=== PATIENT | female | born 1980 | race American Indian/Alaskan Native ===

== ENCOUNTER → 2024-11-21 | Outpatient (CLI) | payer BC, SELFPAY ==
[2024-11-21 12:21] LABS: Collection Type, Urine Clean Catch
[2024-11-21 13:06] LABS: Bacteria,Urine Rare; Bilirubin,Urine Negative (Negative); Blood,Urine 1+ (Negative); Color,Urine Yellow (Lt Yel-Yel); Glucose, Urine Negative (Negative); Ketones,Urine Negative (Negative); Leukocyte Esterase,Urine Positive (Negative); Nitrite,Urine Negative (Negative); Protein,Urine Trace (Neg - Trace); RBC,Urine 16 /hpf (0-3); Specific Gravity,Urine 1.013 (1.001-1.035); Squamous Epithelial Cell,Urine 9 /hpf (0-5); Urobilinogen,Urine Negative mg/dL (0.0-1.0); WBC,Urine 257 /hpf (0-5)
[2024-11-21 13:11] LABS: Clarity,Urine Cloudy (Clear/Hazy)
== END | disposition home or self-care (01) ==
LOC: COPL 12:11 → SLDO 12:12
PROVIDERS: PCP Family Medicine; Referring Provider Family Medicine; Visit Provider Family Medicine
DX: N30.00 Acute cystitis without hematuria (principal)
CPT/HCPCS: 81001; 87077; 87086; 87186

== ENCOUNTER 2024-12-21 19:35 | Observation (INO) | payer BC, SELFPAY ==
[2024-12-21 19:36] VITALS: BMI 39.9
[2024-12-21 20:19] VITALS: BP 163/101; PULSE 94; RESP 20; TEMP 36.7; O2SAT 97
--- NOTE | 2024-12-21 20:28 | XR_ITS ---
Examination: Transvaginal ultrasound of the pelvis, complete Technique: Transvaginal sonographic images pelvis performed using esqueda scale imaging Exam date and time: December 21, 2024 2115 hours INDICATIONS: Pelvic right lower abdominal pain umbilical pain today FINDINGS: Absent uterus Right ovary 5.7 cm arterial flow, 4.3 x 3.3 x 3.7 cm cyst Left ovary 2.6 cm, arterial flow, 8mm follicular cyst IMPRESSION: Right ovarian simple cyst 4.3 x 3.3 x 3.7 cm.
--- NOTE | 2024-12-21 20:28 | XR_ITS ---
Examination: CT abdomen with intravenous contrast CT pelvis with intravenous contrast 2-D coronal reconstructions 2-D sagittal reconstructions Date and time of exam:December 21, 2024, 2241 hours INDICATIONS: Onset right-sided abdominal pain today. CTDI: vol (mGy) 10.9 DLP: (mGycm) 608 Technique: Multiple axial sections of the abdomen and pelvis have been obtained. 64 slice high-resolution scanner used. 3 mm axial sections have been obtained, post intravenous injection of 60 cc [id number]-370 2-D sagittal, coronal reconstructions obtained. Low dose protocols were performed. One or more of the following dose reduction techniques were used; automated exposure control, adjustment of the mA and/or KV according to patient size, use of iterative reconstruction technique. Findings: No focal liver or splenic lesions Absent gallbladder No pancreatic or adrenal mass 4 mm left 3 mm right renal calculi, no hydronephrosis or ureteral calculi 6 mm fat-containing umbilical hernia Normal appendix No bowel obstruction 4.6 cm right pelvic cyst Absent uterus No bladder mass Moderate disc narrowing L5-S1 IMPRESSION: Normal appendix Bilateral nonobstructing renal calculi 4.6 cm right pelvic cyst
--- NOTE | 2024-12-21 20:33 | PD.EDRME ---
Rapid Medical Screening Exam [facility] Arrival date/time: 12/21/24 19:35 44F with history of partial hysterectomy, cholecystectomy, and HTN presents to ED with several days of RLQ pain, N/V, and some constipation/diarrhea. Chief Complaint: Abdominal Pain Vital signs: Vital Signs Temperature 98.0 F 12/21/24 20:19 Pulse Rate 94 12/21/24 20:19 Respiratory Rate 20 12/21/24 20:19 Blood Pressure 163/101 H 12/21/24 20:19 Pulse Oximetry (%) 97 12/21/24 20:19 Oxygen Delivery Method Room Air 12/21/24 20:19
[2024-12-21 20:57] LABS: Collection Type, Urine Clean Catch; RBC,Urine 0 /hpf (0-3); WBC,Urine 0 /hpf (0-5)
[2024-12-21] MEDS: ONDANSETRON INJ 2 MG/ML INJ 2 ML 4 MG IV (21:08)
[2024-12-21] MEDS: MORPHINE SULF INJ 10 MG/ML VIAL 5 MG IVP (21:08)
[2024-12-21 21:21] LABS: Basophils # (Auto) 0.0 Thou/mm3 (0.0-0.2); Basophils % (Auto) 0 % (0-2.5); Eosinophils # (Auto) 0.2 Thou/mm3 (0.0-0.5); Eosinophils % (Auto) 2 % (0-10); Hematocrit 40.8 % (36.0-46.0); Hemoglobin 14.0 g/dL (12.0-16.0); Immature Granulocytes Auto 0.03 Thou/mm3 (0.00-0.00); Lymphocytes # (Auto) 4.0 Thou/mm3 (1.0-4.8); Lymphocytes % (Auto) 42 % (10-50); Mean Corpuscular HGB Conc 34.3 g/dl (31.0-37.0); Mean Corpuscular Hemoglobin 30.4 pg (25.0-35.0); Mean Corpuscular Volume 89 fL (80-100); Monocytes # (Auto) 0.8 Thou/mm3 (0.0-0.8); Monocytes % (Auto) 8 % (0-12); Neutrophils # (Auto) 4.6 Thou/mm3 (1.8-7.7); Neutrophils % (Auto) 48 % (37-80); Nucleated Red Blood Cell # 0.00 Thou/mm3 (0.00-0.00); Nucleated Red Blood Cell % 0 /100 WBC (0); Platelet Count 212 Thou/mm3 (140-440); RDW Standard Deviation 41.7 fL (36.4-46.3); Red Blood Count 4.60 Miln/mm3 (4.00-5.20); White Blood Count 9.7 Thou/mm3 (3.6-11.0)
[2024-12-21 22:29] LABS: Alanine Aminotransferase 60 U/L (10-49); Albumin, Serum 4.5 gm/dL (3.5-5.0); Albumin/Globulin Ratio 1.5 (1.2-2.2); Alkaline Phosphatase 102 U/L (46-116); Aspartate Amino Transferase 42 U/L (0-34); BUN/Creatinine Ratio 10 Ratio (12-20); Bilirubin,Total 0.4 mg/dL (0.3-1.2); Blood Urea Nitrogen 6 mg/dL (9-23); Calcium 10.2 mg/dL (8.3-10.6); Calcium (Corrected) 10.2 mg/dL (8.5-10.1); Carbon Dioxide 28.5 mMol/L (20.0-31.0); Creatinine (Component) 0.6 mg/dL (0.6-1.3); Estimated Creatinine Clearance 115.6 mL/min (>60); Globulin 3.1 gm/dL (2.3-3.5); Glucose 89 mg/dL (74-106); Lipase 43 U/L (12-53); Total Protein 7.6 gm/dL (5.7-8.2); eGFR > 60 See Note
[2024-12-21 22:31] LABS: Anion Gap 8 (7-16); Chloride 102 mMol/L (98-107); Osmolality,Calculated 272 (275-295); Potassium 3.5 mMol/L (3.4-5.1); Sodium 138 mMol/L (136-145)
[2024-12-21 22:44] LABS: Bilirubin,Urine Negative (Negative); Blood,Urine Negative (Negative); Clarity,Urine Clear (Clear/Hazy); Color,Urine Colorless (Lt Yel-Yel); Culture Indicated,Urine Not Indicated; Glucose, Urine Negative (Negative); Ketones,Urine Negative (Negative); Leukocyte Esterase,Urine Negative (Negative); Nitrite,Urine Negative (Negative); PH,Urine 6.5 (5.0-7.0); Protein,Urine Negative (Neg - Trace); Specific Gravity,Urine 1.007 (1.001-1.035); Squamous Epithelial Cell,Urine 1 /hpf (0-5); Urobilinogen,Urine Negative mg/dL (0.0-1.0)
[2024-12-21 22:51] VITALS: BP 137/87; PULSE 84; RESP 18; TEMP 36.9; O2SAT 95
[2024-12-21] MEDS: KETOROLAC INJ 30 MG/ML VIAL IVP (23:38)
[2024-12-22] VITALS (12 sets, daily range): BP systolic 128–150; BP diastolic 72–96; PULSE 80–99; RESP 14–99; TEMP 35.8–37.2; O2SAT 95–100; BMI 39.9
--- NOTE | 2024-12-22 00:29 | PD.GYNHP ---
Documentation for date of: 12/22/24 AUTOMOTIVE SERVICES MANAGER - HPI History of Present Illness History of present illness: Ms. FAGAN is a 44 year old female with a prior hysterectomy for benign disease who presents to the ER complaining of severe right lower quadrant pain, Nausea, Vomiting and Diarrhea. TVS and CT Scan show a right ovarian cyst 4.3 x 3.3 x 3.7 cm with a normal appendix and no bowel obstruction. She received Morphine 5mg and then Toradol 30mg 2 hours later and still rates her pain 10 out of 10. Review of Systems Review of Systems Narrative Review of Systems: Denies any chest pain palpitations cough fever shortness of breath or lower extremity pain Past Medical History Past Medical History NEUROLOGIC: Positive Migraine CARDIAC: Positive Hypertension GASTROINTESTINAL: Positive Gastrointestinal Disorders (Chronic elevated liver enzymes), Gall Bladder Disease, Gastroesophageal Reflux Disease and Obesity GENITOURINARY: Positive Kidney Stones REPRODUCTIVE: Positive Previous Pregnancies Family History OTHER FAMILY HX: Colon cancer: Maternal aunt uncle and nephew Surgical History SURGICAL: Positive Hysterectomy, Section (x 4) and Hx Cholecystectomy OTHER SURGICAL HX: Endometrial ablation, EGD. Social History SOCIAL: Denies any alcohol drug use or smoking. Meds Home Medications and Allergies Home Medications ?Medication ?Instructions ?Recorded ?Confirmed ?Type hydrochlorothiazide 25 mg tablet 25 mg PO QDAY 02/09/23 02/09/23 History losartan 50 mg tablet 50 mg PO QDAY 02/09/23 02/09/23 History rimegepant 75 mg disintegrating 75 mg PO QDAY 02/09/23 02/09/23 History tablet (Nurtec ODT) Allergies Allergy/AdvReac Type Severity Reaction Status Date / Time Sulfa (Sulfonamide Allergy Rash Verified 12/21/24 19:36 Antibiotics) Exam - AUTOMOTIVE SERVICES MANAGER Vital Signs Temp Pulse Resp BP Pulse Ox O2 Del Method 98.4 F 84 18 137/87 H 95 Room Air 12/21/24 22:51 12/21/24 22:51 12/21/24 22:51 12/21/24 22:51 12/21/24 22:51 12/21/24 22:51 Routine HEENT Exam Comments: Oropharynx and sclera clear Routine Respiratory Exam Comments: Clear to auscultation bilaterally Routine Cardiovascular Exam Comments: Regular rate and rhythm Routine Abdominal Exam Comments: Tender right lower quadrant, soft, guarding, no rebound or rigidity, old Pfannenstiel scar noted, old trocar scars noted Routine Extremities Exam Comments: Nontender or edema Routine Skin Exam Comments: No gross rashes or lesions AUTOMOTIVE SERVICES MANAGER - Results Labs 12/21/24 20:50 12/21/24 20:50 Labs: Short CBC 12/21/24 Range/Units 20:50 WBC 9.7 (3.6-11.0) Thou/mm3 Hgb 14.0 (12.0-16.0) g/dL Hct 40.8 (36.0-46.0) % Plt Count 212 (140-440) Thou/mm3 BMP 12/21/24 20:50 Sodium 138 Potassium 3.5 Chloride 102 Carbon Dioxide 28.5 BUN 6 L Creatinine 0.6 Glucose 89 Calcium 10.2 Liver Function 12/21/24 Range/Units 20:50 Total Bilirubin 0.4 (0.3-1.2) mg/dL AST 42 H (0-34) U/L ALT 60 H (10-49) U/L Alkaline Phosphatase 102 (46-116) U/L Albumin 4.5 (3.5-5.0) gm/dL Urine 12/21/24 Range/Units 20:40 Urine Color Colorless A (Lt Yel-Yel) Urine Clarity Clear (Clear/Hazy) Urine pH 6.5 (5.0-7.0) Ur Specific [place] 1.007 (1.001-1.035) Urine Protein Negative (Neg - Trace) Urine Glucose (UA) Negative (Negative) Impressions Impression: Right ovarian torsion Diagnostic laparoscopy, possible laparotomy, possible right oophorectomy, possible right ovarian cystectomy Informed consent was obtained. The patient was made aware of the risks, complications, alternatives and benefits of the proposed procedure and she agreed. She was made aware that due to her BMI and history of multiple abdominal surgeries that there is an increased risk of bowel perforation and bladder injury with her surgery. She was made aware that these complications can increase her duration of hospitalization and recovery time and can sometimes result in chronic conditions and chronic pain. She was made aware of the risk of bleeding leading to blood transfusion, blood clots in the deep veins of the legs and lungs, anesthesia complications and rarely . The patient verbalized understanding and agreed to proceed with the procedure as planned. Quality Measures Quality Measures VTE prophylaxis
--- NOTE | 2024-12-22 00:45 | PD.EDABDPN ---
ED Abdominal Pain RME/HPI General Chief Complaint: Abdominal Pain Stated complaint: RIGHT SIDE ABD PAIN Arrival date/time: 12/21/24 19:35 Source: patient RME / HPI RME / HPI narrative: 12/21/24 19:35 44F with history of partial hysterectomy, cholecystectomy, and HTN presents to ED with several days of RLQ pain, N/V, and some constipation/diarrhea. ------ Dr. Obrien's Main ED Evaluation: This is a 44-year-old female with above surgical history, patient of Dr Meza who presents with right mid to right lower abdominal pain that is twisting in sensation that started earlier today on and off with increasing intensity that is currently present at approximately 3 out of 10. The patient states that since being in the emergency department the pain has gone up to at least a 7 out of 10. She has not had pain like this in the past. There is nausea without any vomiting. Otherwise not exertional. The patient does not report that she has a history of STD. There is some radiation to her back on the right. No dysuria or vaginal bleeding at this time. Patient has a history of high cholesterol, partial hysterectomy and cholecystectomy in the past. HAIR SPINNING MACHINE OPERATOR is Dr Meza. Related Data Home Medications ?Medication ?Instructions ?Recorded ?Confirmed hydrochlorothiazide 25 mg tablet 25 mg PO QDAY 02/09/23 02/09/23 losartan 50 mg tablet 50 mg PO QDAY 02/09/23 02/09/23 rimegepant 75 mg disintegrating 75 mg PO QDAY 02/09/23 02/09/23 tablet (Nurtec ODT) Previous Rx's ?Medication ?Instructions ?Recorded metoclopramide HCl 5 mg tablet 5 mg PO BID #60 tabs 02/09/23 (Reglan) sucralfate 1 gram tablet (Carafate) 1 g PO BID #60 tabs 02/09/23 hydrocodone 5 mg-acetaminophen 325 1 tab PO Q6H PRN pain #20 tabs 12/22/ mg tablet Allergies Allergy/AdvReac Type Severity Reaction Status Date / Time Sulfa (Sulfonamide Allergy Rash Verified 12/21/24 19:36 Antibiotics) Review of Systems Review of Systems Systems Reviewed: All systems reviewed, normal except as documented Past Medical History Past Medical History NEUROLOGIC: Positive Migraine; Negative Seizures CARDIAC: Positive Hypertension; Negative Cardiac Disorders or Congestive Heart Failure RESPIRATORY: Negative Chronic Obstructive Pulmonary Disease (COPD) or Asthma GASTROINTESTINAL: Positive Gastrointestinal Disorders (Chronic elevated liver enzymes), Gall Bladder Disease, Gastroesophageal Reflux Disease and Obesity GENITOURINARY: Positive Kidney Stones; Negative Renal Disease REPRODUCTIVE: Positive Previous Pregnancies MUSCULOSKELETAL: Negative Musculoskeletal Disorders ENDOCRINE: Negative Endocrine Disorders, Diabetes Mellitus Type 1 or Diabetes Mellitus Type 2 HEMATOLOGIC: Negative Sickle Cell Disease OTHER HISTORY: Negative Blood Transfusions, Anesthesia Reactions or Cancer Family History OTHER FAMILY HX: Colon cancer: Maternal aunt uncle and nephew Surgical History SURGICAL: Positive Hysterectomy, Section (x 4) and Hx Cholecystectomy OTHER SURGICAL HX: Endometrial ablation, EGD. Social History SOCIAL: Denies any alcohol drug use or smoking. SMOKING STATUS: Never smoker Course Quality Measures none Orders Category Date Time Status SDC [Place in Surgical Day Care] Routine Admission 12/22/24 00:24 Active condition [Patient Condition] Routine Admission 12/22/24 Ordered Ambulate with Assistance Routine Care 12/22/24 02:48 Ordered Apply SARA Hose NOW Care 12/22/24 03:46 Active COVID-19 Screening Questionnaire NOW Care 12/22/24 00:[address] Screening NOW Care 12/21/24 20:31 Completed Continuous Pulse Oximetry .Ongoing Care 12/22/24 03:46 Active DC Fluid. Convert to IV Lock. Now Care 12/22/24 03:46 Active Decision to Admit X1 Care 12/22/24 00:22 Completed Incentive Spirometry Treatment .q2h w/a Care 12/22/24 03:46 Active Insert IV NOW Care 12/21/24 20:28 Completed Miscellaneous Nursing Order X1 Care 12/22/24 02:48 Active NPO NOW Care 12/22/24 00:26 Completed Notify provider NEEDED Care 12/22/24 03:46 Active Sequential Compression Device NOW Care 12/22/24 03:46 Active Turn, Cough, and Deep Breathe now Care 12/22/24 03:46 Active Diet Low Sodium (2gm) Diet 12/22/[address] abdomen pelvis w con Stat Exams 12/21/24 20:28 Completed US transvaginal Stat Exams 12/21/24 21:29 Completed CBC Stat Lab 12/21/24 20:50 Completed CMP [Comprehensive Metabolic Panel] Stat Lab 12/21/24 20:50 Completed Lipase Stat Lab 12/21/24 20:50 Completed Urinalysis, C/S if Indicated Stat Lab 12/21/24 20:40 Completed Acetaminophen Ivpb [Ofirmev Inj] 100 ml Med 12/22/24 01:22 Discontinued IV .STK-MED Bupivacaine Mpf/Epi 0.5% [Sensorcaine-Mpf Inj 0.5% w/ Med 12/22/24 01:07 Discontinued Epi] 30 ml .ROUTE .STK-MED ONE Dexamethasone Inj [Decadron Inj] Med 12/22/24 01:14 Discontinued 10 mg .ROUTE .STK-MED ONE HYDROcodone*/APAP 5/325 [[place] 5/325] Med 12/22/24 03:46 Active 1 tab PO Q4HR PRN HYDROcodone*/APAP 5/325 [[place] 5/325] Med 12/22/24 03:46 Active 2 tab PO Q6HR PRN HYDROmorphone INJ [Dilaudid Inj] Med 12/22/24 02:24 Discontinued 0.5 mg IVP Q10MIN PRN Ketorolac Inj [Toradol Inj] Med 12/22/24 03:46 Active 30 mg IVP Q6HR PRN Ketorolac Inj [Toradol Inj] Med 12/21/24 23:29 Discontinued 30 mg IVP X1 ONE Lidocaine Inj Pf 2% 2 ml [Xylocaine Inj Pf Inj 2% 2 ml] Med 12/22/24 01:22 Discontinued 2 ml .ROUTE .STK-MED ONE Meperidine Inj [Demerol Inj] Med 12/22/24 02:24 Discontinued 12.5 mg IVP Q5M PRN Metoclopramide Inj [Reglan Inj] Med 12/22/24 01:14 Discontinued 10 mg .ROUTE .STK-MED ONE Midazolam Inj [Versed Inj] Med 12/22/24 02:24 Discontinued 1 mg IVP Q5MIN PRN Morphine Inj Med 12/21/24 20:28 Discontinued 5 mg IVP X1 ONE Ondansetron Inj [Zofran Inj] Med 12/21/24 20:28 Discontinued 4 mg IV X1 ONE Ondansetron Inj [Zofran Inj] Med 12/22/24 02:24 Active 4 mg IVP X1 PRN Promethazine Inj [Phenergan Inj] 12.5 mg Med 12/22/24 02:24 Discontinued Sodium Chloride 0.9% [Ns] 50 ml IV X1 Propofol Inj [Diprivan Inj] Med 12/22/24 01:14 Discontinued 200 mg IV .STK-MED ONE Ringers Lactated 1000 ml [Lactated Ringers] 1,000 ml Med 12/22/24 18:45 Discontinued IV 100 mls/hr Ringers Lactated 1000 ml [Lactated Ringers] 1,000 ml Med 12/22/24 00:30 Active IV 30 mls/hr Rocuronium Inj [Zemuron Inj] Med 12/22/24 01:14 Discontinued 100 mg .ROUTE .STK-MED ONE Simethicone [Mylicon Chew] Med 12/22/24 03:46 Active 80 mg PO Q4HR PRN Sugammadex Inj [Bridion Inj] Med 12/22/24 02:32 Discontinued 200 mg .ROUTE .STK-MED ONE Tranexamic Acid Inj Med 12/22/24 02:30 Discontinued 1,000 mg .ROUTE .STK-MED ONE fentaNYL INJ [Sublimaze Inj] Med 12/22/24 01:14 Discontinued 100 mcg .ROUTE .STK-MED ONE fentaNYL INJ [Sublimaze Inj] Med 12/22/24 02:04 Discontinued 100 mcg .ROUTE .STK-MED ONE fentaNYL INJ [Sublimaze Inj] Med 12/22/24 02:24 Discontinued 50 mcg IVP Q5MIN PRN hydrALAZINE INJ [Apresoline Inj] Med 12/22/24 02:24 Discontinued 5 mg IV Q20MIN PRN Code Status Routine Oth 12/22/24 00:25 Ordered Oxygen Delivery .Ongoing RT 12/22/24 03:46 Active Transfer Order Routine Transfer 12/22/24 02:44 Completed Vital Signs Vital signs: Vital Signs Temperature 98.0 F 12/21/24 20:19 Pulse Rate 94 12/21/24 20:19 Respiratory Rate 20 12/21/24 20:19 Blood Pressure 163/101 H 12/21/24 20:19 Pulse Oximetry (%) 97 12/21/24 20:19 Oxygen Delivery Method Room Air 12/21/24 20:19 Abdominal Pain MDM MDM Narrative MDM Narrative:: 44-year-old female initially seen by the PA who feels that this patient may have intermittent torsion with an ovarian cyst and or abnormality in the pelvis measuring up to 4.3 cm. The patient is still complaining of significant pain. While in the emergency department she was treated with morphine and Toradol. Initial blood pressure 163 systolic improved to 137. The patient is afebrile and otherwise white count shows no leukocytosis anemia, or thrombocytopenia. BUN and creatinine are normal. She has baseline elevated AST and ALT however her other LFTs are normal and her urine does not show infection. I discussed this case with the PA and at this time he has spoken with Dr Meza who is agreed to come and evaluate the patient in the emergency department. I have reviewed the CT interpretation and the ultrasound. CT scan shows normal appendix. Ultrasound interpretation is reviewed. The patient is placed into a room. She has moderate tenderness palpation at the right side of her abdomen, patient patient is unable to lay flat at this time since she is having significant pain. Dr Meza's at the bedside and he will admit and or consider operative management at this time. Patient data External records reviewed:: [facility] previous records (Per chart review, patient has no previous ED visits or admissions to this facility.) Clinical information provided by:: patient Social determinants that could affect healthcare access:: none Patient has the following chronic illnesses:: HTN How is presenting disease/condition affected by chronic disease/condition?: uneffected by Evaluation data The following diagnostics were reviewed and interpreted by me:: lab results Lab and/or radiology exams considered but not ordered:: none Interpretation Summary: na Medications / Prescriptions Medications or Prescriptions considered but not ordered:: none Medication administrations:: Medication Administration History Hydrocodone Bitart/Acetaminophen (Hydrocodone/Apap 5/325 Tablet) 1 tab PO Q4HR PRN PRN Reason: Patient rated pain 7 to 8 Stop: 12/27/24 03:45 Hydrocodone Bitart/Acetaminophen (Hydrocodone/Apap 5/325 Tablet) 2 tab PO Q6HR PRN PRN Reason: Patient rated pain 9 to 10 Stop: 12/27/24 03:45 Lactated Ringer's (Lactated Ringers) 1,000 mls @ 30 mls/hr IV .Q24H NAOMI Stop: 01/21/25 00:29 Last Admin: 12/22/24 00:48 Dose: 30 mls/hr Documented By: Ketorolac Tromethamine (Ketorolac Inj 30 Mg/Ml Vial) 30 mg IVP Q6HR PRN PRN Reason: BREAKTHROUGH PAIN (SEVERE) Stop: 12/24/24 03:45 Ondansetron HCl (Ondansetron Inj 2 Mg/Ml Inj 2 Ml) 4 mg IVP X1 PRN PRN Reason: NAUSEA OR VOMITING Simethicone (Simethicone 80 Mg Chew) 80 mg PO Q4HR PRN PRN Reason: GAS Stop: 01/21/25 03:45 Last Admin: 12/22/24 04:53 Dose: 80 mg Documented By: BF Discontinued Medications Bupivacaine HCl/Epinephrine Bitart (Bupivacaine Mpf/Epi 0.5% 30 Ml Vial 1:200,000) Confirm Administered Dose 30 ml .ROUTE .STK-MED ONE Stop: 12/22/24 01:08 Dexamethasone Sodium Phosphate (Dexamethasone Sod Phos Inj 10 Mg/Ml Vial) Confirm Administered Dose 10 mg .ROUTE .STK-MED ONE Stop: 12/22/24 01:15 Fentanyl Citrate (Fentanyl Cit Inj 50 Mcg/Ml Amp 2ml) Confirm Administered Dose 100 mcg .ROUTE .STK-MED ONE Stop: 12/22/24 01:15 Fentanyl Citrate (Fentanyl Cit Inj 50 Mcg/Ml Amp 2ml) Confirm Administered Dose 100 mcg .ROUTE .STK-MED ONE Stop: 12/22/24 02:05 Fentanyl Citrate (Fentanyl Cit Inj 50 Mcg/Ml Amp 2ml) 50 mcg IVP Q5MIN PRN; Protocol PRN Reason: PAIN SCALE 4-10(Mod-Sev Hydralazine HCl (Hydralazine Inj 20 Mg/Ml Vial) 5 mg IV Q20MIN PRN PRN Reason: SEE COMMENTS Hydromorphone HCl (Hydromorphone Inj 2 Mg/Ml Vial) 0.5 mg IVP Q10MIN PRN; Protocol PRN Reason: PAIN SCALE 4-10(Mod-Sev Acetaminophen (Ofirmev Inj) Confirm Administered Dose 100 mls @ ud IV .STK-MED ONE Stop: 12/22/24 01:23 Promethazine HCl 12.5 mg/ (Sodium Chloride) 50.5 mls @ 2.5 mls/min IV X1 PRN PRN Reason: NAUSEA OR VOMITING Lactated Ringer's (Lactated Ringers) 1,000 mls @ 100 mls/hr IV .Q10H [facility] Stop: 01/21/25 18:44 Ketorolac Tromethamine (Ketorolac Inj 30 Mg/Ml Vial) 30 mg IVP X1 ONE Stop: 12/21/24 23:30 Last Admin: 12/21/24 23:38 Dose: 30 mg Documented By: OZIEL Lidocaine HCl (Lidocaine Inj Pf 2% 2 Ml Vial) Confirm Administered Dose 2 ml .ROUTE .STK-MED ONE Stop: 12/22/24 01:23 Meperidine HCl (Meperidine Inj 50 Mg/Ml Vial) 12.5 mg IVP Q5M PRN PRN Reason: SHIVERING Stop: 12/27/24 02:23 Metoclopramide HCl (Metoclopramide Inj 5 Mg/Ml Vial 2 Ml) Confirm Administered Dose 10 mg .ROUTE .STK-MED ONE Stop: 12/22/24 01:15 Midazolam HCl (Midazolam Inj 1 Mg/Ml Vial 2 Ml) 1 mg IVP Q5MIN PRN PRN Reason: ANXIETY Stop: 12/23/24 02:23 Morphine Sulfate (Morphine Sulf Inj 10 Mg/Ml Vial) 5 mg IVP X1 ONE Stop: 12/21/24 20:29 Last Admin: 12/21/24 21:08 Dose: 5 mg Documented By: OZIEL Ondansetron HCl (Ondansetron Inj 2 Mg/Ml Inj 2 Ml) 4 mg IV X1 ONE; Protocol Stop: 12/21/24 20:29 Last Admin: 12/21/24 21:08 Dose: 4 mg Documented By: OZIEL Propofol (Propofol Inj 10 Mg/Ml Vial 20 Ml) Confirm Administered Dose 200 mg IV .STK-MED ONE Stop: 12/22/24 01:15 Rocuronium [place] (Rocuronium Inj 10 Mg/Ml Vial 10 Ml) Confirm Administered Dose 100 mg .ROUTE .STK-MED ONE Stop: 12/22/24 01:15 Sugammadex Sodium (Sugammadex Inj 100 Mg/Ml 2ml Vial) Confirm Administered Dose 200 mg .ROUTE .STK-MED ONE Stop: 12/22/24 02:33 Tranexamic Acid (Tranexamic Acid Inj 1,000 Mg/10 Ml Vial) Confirm Administered Dose 1,000 mg .ROUTE .STK-MED ONE Stop: 12/22/24 02:31 see above Consultations Consultation(s) initiated? (list below): Yes Diagnosis Differential diagnosis abdominal pain: acute appendicitis and other (intermittent torsion, ruptured cyst) Most likely diagnosis given after review of the tests above:: see clinical impression below Admission Indicated Admission indicated?: indicated Admission Request Was there a request for admission?: Yes Admission Attestation Admission request attestation: Discussed case with [] from Hospitalist service regarding admission. Discussed patients ED course, exam findings, labs, and radiology results. The Hospitalist [agrees,declines] to accept the patient for admission. Disposition Plan Disposition Plan: Admit Discharge Plan Plan Patient Disposition: Admit Acute Care w/in Hospital Discharge Disposition comment: HOSPITAL Patient condition on transfer: Stable Problem List Clinical Impression: Ovarian mass, Inadequate pain control Patient/Caregiver Discharge Instructions Discharge Activity: activity as tolerated Other Activity Instructions:: Follow up office 1 week.
[2024-12-22] MEDS: RINGERS LACTATED 1000 ML 1,000 ML 30 ML IV ×2 (00:48→08:42)
--- NOTE | 2024-12-22 02:49 | ESOP_ITS ---
Operative Note - FLAT BED KNITTER Procedure Date of procedure: 12/22/24 Procedure Performed: Diagnostic laparoscopy, lysis of adhesions, right oophorectomy Indication: Severe right lower quadrant pain Right ovarian cyst Suspect ovarian torsion Pre-Op diagnosis: Right ovarian torsion Post-Op diagnosis: Right ovarian cyst Anesthesia type: General Procedure description: After proper informed consent was obtained and the patient made aware of the risk complications alternatives and benefits of the proposed procedure she was taken to the operating room where she underwent induction of general anesthesia she was prepped and draped in you sterile fashion in the dorsolithotomy pos ition. A timeout was performed. A sponge stick was placed in the vagina. Attention was then turned to the abdomen where the physician regowned and gloved a 5 mm incision was made in the umbilical fold. With tenting up to the abdomen a Veress needle was inserted. Saline confirmed intra-abdominal placement an artificial pneumoperitoneum was created to 12 mmHg. The trocar was inserted with the laparoscopic guide. Multiple adhesions were noted. A second incision was made in the midline 2 cm above the symphysis pubis. Through this 10 mm incision a 10 mm trocar was inserted under direct visualization a laparoscope. A third incision was made in the left lower quadrant. Through this 5 mm incision in the left lower quadrant a 5 mm trocar was inserted under direct visitation of the laparoscope. The omental adhesions to the anterior abdominal wall made visualization of the surgical field difficult. With lysis of adhesions the right adnexa was visualized. The uterus was absent and the left ovary appeared grossly within normal limits. There was a right ovary which was adherent to the pelvic sidewall and contained a 4 x 3.5 cm cyst containing clear fluid. The ovary was not torsed. The appendix appeared grossly within normal limits.. No abnormalities of the bowel were noted. Using the Valentine Geck grasper the right ovary was grasped. Using the 1136 harmonic scalpel the right oophorectomy was performed. Hemostasis was achieved. The specimen was removed through an Endopouch. Suction search engine optimization specialist was used to visualize the operative surgical field and no bleeding was noted. The carbon oxide was removed from the peritoneal cavity. The incisions were found to be hemostatic and closed with 4- 0 Monocryl. The incisions were injected with Marcaine half percent with epine phrine.. The incisions were covered with Dermabond. The sponge stick was removed from the vagina. She was reversed from general anesthesia in stable condition.. Counts were correct. Discharge instructions were given preoperatively. I discussed with the patient's family the nature of her condition and the intraoperative findings expectation for recovery all questions answered. Estimated blood loss (ml): 25 Findings: As above Complications: none Surgical staff Operation Date: 12/22/24 01:45 Case Staff Anesthesiologist: Stephen Dc RNnissan sales consultant: Dhruv Garland Diagnosis Discharge Diagnosis (1) Ovarian cyst, right: Status: Acute (2) S/P right oophorectomy: Status: Acute Problem List Completed Was Problem List Reviewed/Reconciled?: Yes
--- NOTE | 2024-12-22 02:55 | SUR.PHASEI ---
0255 Patient arrived to recovery resting comfortably in [facility], drowsy and talking with staff, on oxygen 4L via nasal cannula, breathing unlabored, vital signs stable, denies pain, dressing intact to lower abdomen; dermabond and to vaginal area; peripad, no bleeding, no bleeding noted, denies nausea, report received from Dr. Dc and Jorge SURESH
--- NOTE | 2024-12-22 03:15 | SUR.PHASEI ---
0315 Patient sitting up in bed eating ice chips; tolerating well
--- NOTE | 2024-12-22 03:30 | SUR.PHASEI ---
0326 Report given to Nicole RN, patient meets discharge criteria from recovery, awake and talking with staff, on oxygen 2L via nasal cannula, breathing unlabored, vital signs stable, per patient her pain is tolerable, dressing intact; no bleeding noted, drinking 7up; denies nausea. 0330 Patient transported via gurney to room 359 without incident, patient parent accompanied transport
[2024-12-22] MEDS: SIMETHICONE 80 MG CHEW PO (04:53)
[2024-12-22] MEDS: HYDROcodone/APAP 5/325 TABLET 2 TAB PO (06:24)
[2024-12-22] MEDS: HYDROcodone/APAP 5/325 TABLET 1 TAB PO ×2 (06:24→10:27)
--- NOTE | 2024-12-22 10:17 | PC.SS ---
Patient is alert/oriented. Patient was able to verify demographics. Patient resides with her . Patient states she's independent with ADL's. No DME. Patient is employed. Patient admitted for right ovarian cyst. No d/c needs. PCP: Dr. Hayes. Pharmacy: [facility]. Patient discharge plan is to return home with spouse. Alt medical decision maker: Spouse, Beto, transportation: spouse
[2024-12-22] MEDS: KETOROLAC INJ 30 MG/ML VIAL IVP (11:56)
== END 2024-12-22 16:18 | disposition home or self-care (01) ==
LOC: SERX 12-22 00:02 → S2EX 12-22 00:48 → S3NX 12-22 05:56
PROVIDERS: Physician Assistant; Admitting Provider Specialist; Emergency Provider Emergency Medicine; PCP Family Medicine; Referring Provider Specialist; Visit Provider Specialist
PROC: (CPT 49320; principal; 2024-12-22 01:30)
DX: N83.11 Corpus luteum cyst of right ovary (principal); E78.00 Pure hypercholesterolemia, unspecified; I10 Essential (primary) hypertension; K59.00 Constipation, unspecified; N83.511 Torsion of right ovary and ovarian pedicle; Z90.49 Acquired absence of other specified parts of digestive tract; Z01.810 Encounter for preprocedural cardiovascular examination
CPT/HCPCS: 58661; 36415; 74177; 76830; 80053; 81001; 83690; 85025; 94664; 96361; 96374; 96375; 96376; 99285; A4217; A4649; G0378; J0131; J1100; J1885; J2270; J2405; J2704; J2765; J3010; J3490; J7120; Q9967; A9270